=== PATIENT | female | born 1990 | race Caucasian/White ===

== ENCOUNTER → 2017-10-15 | Outpatient (REF) ==
[~2017-10-15] MED LIST: AMIT-106 PO; BENZ85AE TP; FERR325T24 PO; HYDR-6045 RC; IBUP-56 PO; LANO56CR3 TP; NORE-74 PO; NORE1TAB68 PO; OMEP-218 PO; ONDA4TAB PO; PER PO; PRED20TA6 PO; SULF-198 PO; WITC1MED12 TP
[2017-10-15 08:43] LABS: LDL CHOLESTEROL 101 mg/dl
== END ==
DX: Z02.9 Encounter for administrative examinations, unspecified (principal)